=== PATIENT | female | born 1930 | race Caucasian/White ===

== ENCOUNTER 2018-11-28 10:30 | Emergency (ER) | payer MEDICARE, OTHER ==
[2018-11-28 10:33] VITALS: BP 169/93
[2018-11-28] MEDS ORDERED: Silver Nitrate Applicator Each TOP ONE (10:51)
--- NOTE | 2018-11-28 11:13 | EDM.PDOC ---
ED HPI GENERAL MEDICAL PROBLEM - General Chief Complaint: ENT Problem Stated Complaint: [facility] Time Seen by Provider: 11/28/18 10:40 Source of Information: Reports: Patient, EMS History Limitations: Reports: No Limitations - History of Present Illness INITIAL COMMENTS - FREE TEXT/NARRATIVE: 88-year-old female with recurring right epistaxis that usually resolve spontaneously fairly rapidly has another episode this morning which is more persistent and it scared her. She called EMS but it had stopped about the time they loaded her on the rig and it has not recurred. She has no pain or headache. No fevers or chills. Onset: Today Duration: Hour(s): (Within the last hour) Associated Symptoms: Reports: No Other Symptoms - Related Data Allergies Allergy/AdvReac Type Severity Reaction Status Date / Time naproxen [From Naprosyn] AdvReac Renal Verified 11/28/18 10:42 Insufficiency NSAIDS (Non-Steroidal AdvReac Renal Verified 11/28/18 10:42 Anti-Inflamma Insufficiency Sulfa (Sulfonamide AdvReac Stomach Verified 11/28/18 10:42 Antibiotics) Upset Home Meds: Home Meds Acetaminophen [Tylenol Arthritis] 650 mg PO Q6H PRN 07/18/13 [History] Aspirin [Adult Low Dose Aspirin EC] 81 mg PO DAILY 07/18/13 [History] Cholecalciferol (Vitamin D3) [Vitamin D] 2,000 unit PO DAILY 07/18/13 [History] Montelukast [Singulair] 10 mg PO BEDTIME 07/18/13 [History] Multivitamin [Multi Vitamin Daily] 1 tab PO DAILY 07/18/13 [History] Niacin 500 mg PO BID 07/18/13 [History] [place]-3/DHA/Epa/Fish Oil [[place]bury-3 Fish Oil Softgel] 1 tab PO BEDTIME 07/18/13 [ History] Simvastatin [Zocor] 40 mg PO BEDTIME 07/18/13 [History] Triamcinolone Acetonide 1 applic TOP ASDIRECTED PRN 07/20/15 [History] Losartan [Cozaar] 12.5 mg PO BID 12/08/15 [History] Sennosides/Docusate Sodium [Sennosides-Docusate Sodium] 1 tab PO BID 12/08/15 [ History] Hydrocodone/Acetaminophen [Hydrocodon-Acetaminophen 5-325] 1 each PO Q6H PRN 06/23 [History] amLODIPine [Norvasc] 2.5 mg PO DAILY 06/14/18 [History] Past Medical History HEENT History: Reports: Hard of Hearing Cardiovascular History: Reports: High Cholesterol, Hypertension Respiratory History: Reports: Interstitial Lung Disease Other Respiratory History: lung mass removed Gastrointestinal History: Reports: Chronic Constipation OUTPATIENT THERAPIST History: Reports: Musculoskeletal History: Reports: Back Pain, Chronic, Osteoarthritis Endocrine/Metabolic History: Reports: Diabetes, Type II - Infectious Disease History Infectious Disease History: Reports: Chicken Pox, Measles, Mumps, Pertussis ( Whooping Cough) - Past Surgical History Head Surgeries/Procedures: Reports: None HEENT Surgical History: Reports: None Cardiovascular Surgical History: Reports: None Respiratory Surgical History: Reports: None GI Surgical History: Reports: Cholecystectomy Endocrine Surgical History: Reports: None Musculoskeletal Surgical History: Reports: None Social & Family History - Tobacco Use Smoking Status *Q: Former Smoker Years of Tobacco use: 10 Used Tobacco, but Quit: Yes Month/Year Tobacco Last Used: 1955 Second Hand Smoke Exposure: No - Caffeine Use Caffeine Use: Reports: Soda - Recreational Drug Use Recreational Drug Use: No ED ROS ENT - Review of Systems Review Of Systems: See Below Constitutional: Denies: Fever, Chills HEENT: Reports: Nosebleed Respiratory: Denies: Shortness of Breath Cardiovascular: Denies: Chest Pain GI/Abdominal: Reports: Nausea. Denies: Vomiting ED EXAM, ENT - Physical Exam Exam: See Below Exam Limited By: No Limitations General Appearance: Alert, No Apparent Distress Nose: Other (There appears to be a site of recent bleeding, irritation on the septum of the right nares.) Head: Atraumatic ( No active bleeding) Respiratory/Chest: No Respiratory Distress Course - Vital Signs Last Recorded V/S: Last Vital Signs Temp 97.1 F 11/28/18 10:33 Pulse 90 11/28/18 10:33 Resp 16 11/28/18 10:33 BP 169/93 H 11/28/18 10:33 Pulse Ox 95 11/28/18 10:33 - Orders/Labs/Meds Meds: Medications Discontinued Medications Generic Name Dose Route Start Last Admin Trade Name Freq PRN Reason Stop Dose Admin Silver Nitrate 1 each 11/28/18 10:51 11/28/18 10:55 Silver Nitrate TOP 11/28/18 10:52 1 each ONETIME ONE Administration - Re-Assessments/Exams Free Text/Narrative Re-Assessment/Exam: 11/28/18 11:55 Discuss just leaving this alone versus cauterize the area that appears to be the site of problem. I explained to the patient that it may start bleeding again if we attempted cauterization but she wanted to attempt the procedure. Cauterizing was done with a silver nitrate stick, and several minutes afterwards it did start bleeding again. A 5.5 cm rapid Rhino was attempted but was not tolerated by the patient. It was removed but after the lubrication from the rapid rhino and another 15 minutes of direct pressure the bleeding stopped. Patient will return if bleeding recurs and she is unable to get it stopped with direct pressure. Departure - Departure Time of Disposition: 12:23 Disposition: Home, Self-Care 01 Condition: Good Clinical Impression: Right-sided nosebleed - Discharge Information Instructions: Nosebleed, [id number] Referrals: PCP,None [Primary Care Provider] - Forms: ED Department Discharge Care Plan Goals: If bleeding recurs, try direct pressure for 15-20 minutes, if unable to control bleeding return to the emergency room.
== END 2018-11-28 12:23 | disposition home or self-care (01) ==
LOC: JP.ED 10:30
DX: R04.0 Epistaxis (principal); I10 Essential (primary) hypertension; Z79.82 Long term (current) use of aspirin; Z79.899 Other long term (current) drug therapy; Z87.891 Personal history of nicotine dependence; Z88.8 Allergy status to other drugs, medicaments and biological substances; Z88.2 Allergy status to sulfonamides
CPT/HCPCS: 30901; 99282; 99283-25

== ENCOUNTER 2018-12-27 09:54 | Outpatient (CLI) | payer MEDICARE, OTHER ==
[~2018-12-27 09:54] MED LIST: Bupivacaine 0.25% 10 ML SDV ONE; Bupivacaine 0.5% 30 ML SDV ONE; methylPREDNISolone Acetate 40 MG/ML SDV ONE
--- NOTE | 2018-12-27 12:10 | ANES ---
DATE OF SERVICE: 12/27/2018 INDICATION: Ms. Roque is an 88-year-old female patient, referred to the Pain Clinic to us by Amelia Huddleston. She is here today for her epidural steroid injection as well as trigger point. Please see the orders for the patient's preprocedure diagnosis as well as ICD-10 code. The risks and benefits of the procedure were explained to the patient, and she wishes to proceed with an epidural steroid injection as well as trigger points. TECHNIQUE: She was placed in a sitting position. Her back was prepped x3 with Betadine, 1% lidocaine skin local was used. The epidural was placed at L5-S1 using a 17-gauge Tuohy needle in loss of resistance technique. The epidural had very good feel throughout, and the epidural space was easily identified. There was negative CSF, negative blood, and negative paresthesias noted. Therefore, 40 mg of Depo-Medrol and 2 mL of 0.25% Sensorcaine with 7 mL preservative-free normal saline were injected with ease. The patient tolerated the epidural procedure very nicely. Attention was then turned to the trigger points, where I did find 18 noticeable lumbosacral trigger points. I injected each of these with 1 to 2 mL of 0.5% Sensorcaine. I did inject more than 3 muscle groups. She tolerated the procedure very nicely. Her vital signs remained stable throughout the procedure and nurse was with me for the entire procedure. There were no anesthesia complications noted. She is going to return in 2 weeks for trigger point injections. She was discharged from the [facility] per protocol. Marcio Lee CRNA /[id number]
[2018-12-27 13:16] VITALS: BP 188/106; PULSE 88
== END 2018-12-27 12:15 | disposition home or self-care (01) ==
LOC: JP.PAIN 09:54
PROVIDERS: ATTEND Nurse Practitioner
DX: M51.37 Other intervertebral disc degeneration, lumbosacral region (principal); M79.18 Myalgia, other site
CPT/HCPCS: 20553; 62322; J1030; J3490

== ENCOUNTER 2019-02-07 08:44 | Outpatient (CLI) | payer MEDICARE, OTHER ==
[~2019-02-07 08:44] MED LIST changes: -Bupivacaine 0.25% 10 ML SDV ONE; -methylPREDNISolone Acetate 40 MG/ML SDV ONE
[2019-02-07 09:21] VITALS: BP 159/88; PULSE 89
--- NOTE | 2019-02-07 10:48 | ANES ---
DATE OF SERVICE: 02/07/2019 INDICATIONS: Ms. Roque is an 88-year-old female patient, referred to the Pain Clinic to us by Dr. Carter. She is here today for her trigger points. Please see the orders for the patient's preprocedure diagnosis as well as ICD-10 code. The risks and benefits of procedure were explained to the patient. She wished to proceed with trigger points. TECHNIQUE: I did find 22 noticeable lumbosacral trigger points. I injected each of these with 1 to 2 mL of 0.5% Sensorcaine. I did inject more than 3 muscle groups. Her vital signs remained stable throughout the procedure and nurse was with me for the entire procedure. There were no anesthesia complications noted, and she is going to return in 2 weeks for an epidural steroid injection as well as trigger points. She was discharged from the [facility] per protocol. Marcio Lee CRNA /[id number]
== END 2019-02-07 09:18 | disposition home or self-care (01) ==
LOC: JP.PAIN 08:44
PROVIDERS: ATTEND Orthopaedic Surgery
DX: M79.18 Myalgia, other site (principal)
CPT/HCPCS: 20553; J3490

== ENCOUNTER 2019-03-21 08:40 | Outpatient (CLI) | payer MEDICARE, OTHER ==
[2019-03-21 09:22] VITALS: BP 150/83; PULSE 99
--- NOTE | 2019-03-21 11:18 | ANES ---
DATE OF SERVICE: 03/21/2019 INDICATION: Carolina is an 88-year-old female patient of Amelia Huddleston. Please refer to Amelia's note for diagnosis. Carolina is here today for low back pain and requesting lumbar triggers. She is well aware of the risks and benefits of the procedure and okay to proceed and consent was received. DESCRIPTION OF PROCEDURE: I placed her in a seated position. I located 22 lumbar triggers, each were swabbed with alcohol, injected with approximately 1-1/2 to 2 mL of 0.5% Sensorcaine. A total of 30 mL were used today. More than 3 muscle groups injected for sure. She tolerated procedure quite well. Please refer to nurse's notes for vital signs and neuro status, which are unchanged and within normal limits. Upon completion, I discussed with her return in 2 weeks, she was agreeable, and after appropriate amount of observation, she was discharged per [facility] protocol. August Michel CRNA /[id number]
== END 2019-03-21 09:24 | disposition home or self-care (01) ==
LOC: JP.PAIN 08:40
PROVIDERS: ATTEND Nurse Practitioner
DX: M60.9 Myositis, unspecified (principal)
CPT/HCPCS: 20553; J3490